=== PATIENT | female | born 1960 | race Caucasian/White ===

== ENCOUNTER → 2019-05-19 20:00 | Outpatient (CLI) | payer OTHER | END | disposition home or self-care (01) | LOC: D.MAMMO 14:00 | PROVIDERS: ATTEND Clinical Nurse Specialist Family Health | DX: Z12.31 Encounter for screening mammogram for malignant neoplasm of breast (principal) ==

== ENCOUNTER 2020-09-16 11:35 | Day surgery (SDC) | payer OTHER ==
[~2020-09-16] VITALS: Ht 152.4 cm; Wt 67.6 kg
[2020-09-16 11:08] LABS: BASOPHILS 0.2 % (0-2); HEMATOCRIT 39.2 % (36.0-48.0); HEMOGLOBIN 12.7 g/dL (12-16); IMMATURE GRANULOCYTES 0.2 % (0-5); LYMPHOCYTE ABS# 0.99 10x3/uL (1.18-3.74); LYMPHOCYTES 21.8 % (15-50); MCHC 32.4 g/dL (31.0-37.0); MCV 92.5 fL (80.0-100.0); MEAN PLATELET VOLUME 9.9 fL (7.4-10.4); MONOCYTES 6.6 % (2-11); NEUTROPHIL ABS# 3.14 10x3/uL (1.56-6.13); NEUTROPHILS 69.2 % (40-80); PLATELET COUNT 225 10x3/uL (130-400); RBC 4.24 10x6/uL (4.00-5.40); RDW 14.5 % (11.5-14.5); WBC 4.5 10x3/uL (4.8-10.8)
[2020-09-16 11:26] LABS: CALC OSMOLALITY 285 mosm/kg (275-300); CALCIUM 8.6 mg/dL (8.5-10.1); CARBON DIOXIDE 28.3 mmol/L (21.0-32.0); CHLORIDE - SERUM 107 mmol/L (98-107); CREATININE - SERUM 0.8 mg/dL (0.6-1.3); GLUCOSE 97 mg/dL (74-106); POTASSIUM - SERUM 4.1 mmol/L (3.5-5.1); SODIUM 142 mmol/L (136-145); UREA NITROGEN 21 mg/dL (7-18); eGFR NON AFRICAN AMERICAN 77 mL/min (90-120)
[~2020-09-16 11:35] MED LIST: CLARITHROMYCIN500 M1; HYDROCHLOROTH12.5 M1 PO; HYDROCODON-ACE1 EA10 PO; MECLIZINE HCL12.5 MG; PAXIL30 MG PO; SELEGILINE HCL5 M1; SINEMET 25-1001 EAC1 PO; ULTRAM50 MG; ULTRAM50 MG PO; VITAMIN D31250 MCG PO; XARELTO20 MG PO; ZANAFLEX2 M1 PO
[2020-09-16] MEDS ORDERED: METHOCARBAMOL500 MG PO (14:22)
[2020-09-16 14:23] VITALS: BP 142/74; Ht 152.4 cm; Wt 67.6 kg
--- NOTE | 2020-09-16 18:13 | NUR ---
C/O WORSENING PAIN AT PALM OF HAND. FINGERS REMIN NUMB AND IS ABLE TO SLIGHTLY WIGGLE. WILL RX WITH PERCOCET
--- NOTE | 2020-09-16 19:20 | NUR ---
REPORTS PAIN IS NOW TOLERABLE 5/10. DISCHARGE INSTRUCTIONS GIVEN TO PT AND AND BOTH VERBALIZED AN UNDERSTANDING. IV D/C'D WITH CANNULA INTACT, PRESSURE HELD AND DRSG PLACED. SLING AND WAIST SWATH PLACED.
--- NOTE | 2020-09-17 06:00 | OP ---
PATIENT NAME: GRAY RUBIO MEDICAL RECORD: [id number] LOCATION:[facility] ADMISSION DATE: SURGEON: JEISON BROWN DO DATE OF OPERATION: 09/16/2020 PROCEDURES PERFORMED: Right open carpal tunnel release and removal of hardware of the right wrist as well as right shoulder arthroscopy with subacromial decompression, distal clavicle excision, acromioplasty, biceps tenodesis, labral debridement, and rotator cuff debridement. PREOPERATIVE DIAGNOSES: Right wrist painful hardware, carpal tunnel syndrome, right shoulder partial tear of the rotator cuff tendon, SLAP tear, subacromial impingement, AC joint arthritis. POSTOPERATIVE DIAGNOSES: Right wrist painful hardware, carpal tunnel syndrome, right shoulder partial tear of the rotator cuff tendon, SLAP tear, subacromial impingement, AC joint arthritis. INDICATIONS: Ms. Rubio is a 60-year-old female who underwent right distal radius open reduction and internal fixation several months ago. The radial styloid screw had cut out and she had subsequently developed carpal tunnel syndrome. I told to remove the screw and do an open carpal tunnel release making sure we got a good full release and she was okay with that doing it that way. I also talked to her about her shoulder. She had an MRI showing a partial tear of the rotator cuff tendon and the SLAP tear as well as long head of the biceps tendon tear and AC joint arthritis and subacromial impingement type symptoms. She had symptoms of rotator cuff tear and I told her that we could take care of all at once since these are all on the same side. She would be at risk for infection, bleeding, damage to nerves or vessels in the area, continued pain, arthrofibrosis or frozen shoulder syndrome of the right shoulder, need for further surgery, need for physical therapy and continued pain, failure of implants and she signed the consent. SURGEON: Jeison Brown DO. DESCRIPTION OF PROCEDURE: The patient was taken to the operative suite, laid in the left lateral decubitus position, after given a block by Anesthesia in preoperative area with right shoulder up. She was sedated and LMA was placed. The right upper extremity was prepped and draped in sterile fashion. Timeout was performed. Everyone was in agreement with the correct side, site, patient and procedure. I then began by doing an open carpal tunnel release in the palm on the right hand in line with the fourth ray. Once I got a full good release of the transverse carpal ligament, viewed the whole length of the median nerve in the palm and into the wrist. I then went to the distal radius, made an incision over the prior incision at the flexor carpi radialis tendon, made careful dissection down to the plate and removed the radial styloid screw and it was taken out. The tourniquet was used during this time and it was inflated to 250 mmHg after exsanguinating the right upper extremity. It was up for approximately 20 minutes. I then let the tourniquet down and coagulated any bleeding with a pickup and Bovie. Cisco Posey, certified ophthalmology surgical technician, closed the distal radius hardware removal part and I closed the carpal tunnel with a 4-0 Monocryl in a horizontal mattress fashion. He closed with 3-0 Vicryl in an inverted interrupted fashion and placed Prineo glue on it. She was then dressed with Adaptic, 4 x 4, Kerlix and then Coban lightly wrapped. We then hung the shoulder for the lateral scope and I inflated the right shoulder joint OPERATIVE REPORT [id number] GRAY RUBIO with 60 mL of normal saline using an 18-gauge spinal needle through a posterior portal, established posterior portal with 11-blade scalpel. Trocar was then entered into the joint, entered the camera. I then established anterior portal with 18-gauge spinal needle and 11-blade scalpel. Trocar was brought in. I then saw the SLAP tear and the long head of the biceps tendon was subluxed slightly medially. I then did a biceps tenotomy and debrided the labrum with a burner. I then saw the subscapularis tendon was partially torn as was the tear at junction of supraspinatus and infraspinatus. I used a shaver to debride both of them back to a stable point and there was not full thickness by any means. I then took the camera into the subacromial space, established a lateral portal with 18 spinal needle and 11 blade scalpel, did a subacromial decompression, distal clavicle excision through the anterior portal and acromioplasty through the lateral portal. I inspected the bursal side of the rotator cuff and there were no tears. I then went to the anterior humerus, dissected out carefully long head of the biceps tendon, put in a unicortical hole on the humerus and put a 2.9 JuggerLoc loop stitch anchor into the humerus and then put the biceps tendon through loop and cinched it down to the humerus. We then cut the excess suture with loop and used a free needle and went back through and tied the biceps securely in place. Once I cut the excess tendon and sutured, then irrigated. Cisco Posey, certified performance technologist, closed the biceps site with 2-0 Vicryl in inverted interrupted fashion, 4-0 Monocryl on the skin, 4-0 Monocryl in inverted interrupted fashion on the portal sites and covered them all with Dermabond glue, Telfa and Tegaderm. She was then awakened, put in a sling, taken to recovery in stable condition. BLOOD LOSS: Minimal. COMPLICATIONS: None. TRANSINT:[id number] Voice Confirmation ID: [id number] DOCUMENT ID: [id number] JEISON BROWN DO at 0600 CC: [id number] DICTATION DATE: 09/16/20 174 TURBINE SUBASSEMBLER: 09/17/20 0500 [facility] 09/16/20 [facility] [address] [place] [address]
== END 2020-09-16 19:15 | disposition home or self-care (01) ==
LOC: D.OPS 11:35
PROVIDERS: Anesthesiology; ATTEND Orthopaedic Surgery
DX: G56.01 Carpal tunnel syndrome, right upper limb (principal); M25.531 Pain in right wrist; M75.121 Complete rotator cuff tear or rupture of right shoulder, not specified as traumatic; S43.431A Superior glenoid labrum lesion of right shoulder, initial encounter; X58.XXXA Exposure to other specified factors, initial encounter; M75.41 Impingement syndrome of right shoulder; M25.511 Pain in right shoulder